=== PATIENT | female | born 1995 | race Asian ===

== ENCOUNTER 2021-01-06 22:37 | Emergency (ER) | payer BC ==
[~2021-01-06] VITALS: Ht 162.6 cm; Wt 54.5 kg
[2021-01-06 23:35] LABS: HEMATOCRIT 40.7 % (37.0-47.0); HEMOGLOBIN 13.4 g/dl (12.5-16.0); MEAN CELL VOLUME 90 fl (80.0-100.0); MEAN CORPUSCULAR HEMOGLOBIN 30 pg (27.0-31.0); MEAN CORPUSCULAR HGB CONC 33 g/dl (33.0-37.0); MEAN PLATELET VOLUME 9.6 fl (7.4-10.4); PLATELET COUNT 308 K/mm3 (130-400); REDCELL DISTRIBUTION WIDTH-CV 12.5 % (11.5-14.5)
[2021-01-06 23:46] LABS: ALANINE AMINOTRANSFERASE 17 U/L (4-34); ALBUMIN 4.6 gm/dL (3.5-5.0); ALKALINE PHOSPHATASE 72 U/L (50-136); ANION GAP 8 mmol/L (7-16); AST,SGOT 28 U/L (15-37); BILIRUBIN,TOTAL 0.2 mg/dL (0.0-1.0); BLOOD UREA NITROGEN 8 mg/dL (7-17); CALCIUM 9.5 mg/dL (8.4-10.2); CARBON DIOXIDE 27 mmol/L (22-30); CHLORIDE 104 mmol/L (98-107); CREATININE, serum 0.69 (0.52-1.25); GLUCOSE 105 mg/dL (74-106); LIPASE 99 U/L (23-300); POTASSIUM 3.9 mmol/L (3.4-5.0); SODIUM 139 mmol/L (137-145); TOTAL PROTEIN 8.3 gm/dL (6.4-8.2)
[2021-01-06 23:48] LABS: C-REACTIVE PROTEIN < 0.5 mg/dL (0.0-0.9)
[2021-01-06 23:54] LABS: BAND 1 % (0-10); BASOPHIL 2 % (0-2); EOSINOPHIL 1 % (0-4); HYPOCHROMIA 1+; LYMPHOCYTE 28 % (20.0-51.0); NEUTROPHILS 51 % (42.0-75.2); PLATELET ESTIMATE NORMAL (NORMAL)
[2021-01-06 23:59] LABS: COLLECTION METHOD CLEAN CATCH
[2021-01-07 00:07] LABS: AMORPHOUS CRYSTAL Present /uL; PH 8 (5-8); URINE APPEARANCE Cloudy; URINE BACTERIA Rare /hpf; URINE BILIRUBIN Negative (NEGATIVE); URINE BLOOD 1+ (NEGATIVE); URINE COLOR Yellow; URINE GLUCOSE Negative (NEGATIVE); URINE KETONE Negative (NEGATIVE); URINE LEUKOCYTE ESTERASE 3+ (NEGATIVE); URINE NITRATE Negative (NEGATIVE); URINE PROTEIN(semi-quant) 1+ (NEGATIVE); URINE UROBILINOGEN Negative (NEGATIVE)
[2021-01-07] MEDS ORDERED: OMNICEF 300MG300 MG PO (00:39)
[2021-01-07 01:38] VITALS: BP 118/68; PULSE 97; TEMP 97.8
== END 2021-01-07 01:38 | disposition home or self-care (01) ==
LOC: COL.ER 22:37
PROVIDERS: Nurse Practitioner Primary Care
DX: N39.0 Urinary tract infection, site not specified (principal); Z32.02 Encounter for pregnancy test, result negative
CPT/HCPCS: J0696; J1885; J2405; J7030

== ENCOUNTER 2021-06-03 16:40 | Emergency (ER) | payer BC ==
[~2021-06-03] VITALS: Ht 162.6 cm; Wt 54.5 kg
[~2021-06-03 16:40] MED LIST: OMNICEF 300MG300 MG PO
[2021-06-03 17:11] LABS: HEMATOCRIT 40.8 % (37.0-47.0); HEMOGLOBIN 13.6 g/dl (12.5-16.0); MEAN CELL VOLUME 89 fl (80.0-100.0); MEAN CORPUSCULAR HEMOGLOBIN 30 pg (27-31); MEAN CORPUSCULAR HGB CONC 33 g/dl (33.0-37.0); MEAN PLATELET VOLUME 10.2 fl (7.4-10.4); PLATELET COUNT 303 K/mm3 (130-400); RED BLOOD COUNT 4.57 M/mm3 (4.10-5.30); REDCELL DISTRIBUTION WIDTH-CV 13.4 % (11.5-14.5)
[2021-06-03 17:29] LABS: ALBUMIN 3.9 gm/dL (3.5-5.0); BILIRUBIN,TOTAL 0.2 mg/dL (0.2-1.2); CALCIUM 8.9 mg/dL (8.4-10.2); CREATININE, serum 0.66 mg/dL (0.57-1.11); POTASSIUM 4.5 mmol/L (3.5-4.5); TOTAL PROTEIN 8.2 gm/dL (6.2-8.1)
[2021-06-03 17:33] LABS: BAND 11 % (0-10); EOSINOPHIL 1 % (0-4); LYMPHOCYTE 30 % (20.0-51.0); NEUTROPHILS 42 % (42.0-75.2); PLATELET ESTIMATE NORMAL (NORMAL)
[2021-06-03 18:45] VITALS: BP 109/80; PULSE 84; TEMP 97.8
== END 2021-06-03 18:45 | disposition home or self-care (01) ==
LOC: COL.ER 16:40
PROVIDERS: Student in an Organized Health Care Education/Training Program
DX: O21.9 Vomiting of pregnancy, unspecified (principal); O99.511 Diseases of the respiratory system complicating pregnancy, first trimester; J45.909 Unspecified asthma, uncomplicated; Z3A.01 Less than 8 weeks gestation of pregnancy
CPT/HCPCS: J2405; J7030

== ENCOUNTER 2021-09-13 11:08 | Emergency (ER) | payer BC | END 2021-09-13 11:55 | disposition left against medical advice (07) | LOC: COL.ER 11:08 | DX: R69 Illness, unspecified (principal) ==

== ENCOUNTER 2022-01-28 08:03 | Inpatient (IN) | payer BC ==
[~2022-01-28] VITALS: Ht 162.6 cm; Wt 79.4 kg
--- NOTE | 2022-01-31 06:30 | NUR ---
0630 PT ON UNIT, CHANGED INTO LABOR GOWN, COMFORTABLE IN BED. UPDATED PATIENT ON INDUCTION PLAN OF CARE. PT REFUSING PITOCIN AT THIS TIME. PT REQUESTS A "PROSTAGLANDIN" TO START LABOR. THIS RN INFORMED PT THAT HER CERVICAL EXAM DOES NOT INDICATE THE NEED FOR A PROSTAGLANDIN AND THAT PITOCIN WILL BE MOST HELPFUL TO CONTINUE CLAUDIA AND DILATING. PT STILL REFUSING PITOCIN. WILL INFORM DR. CARLSON.
[2022-01-31 07:00] VITALS: PULSE 98; TEMP 98.3
--- NOTE | 2022-01-31 07:25 | NUR ---
0725 E[facility] TRACED ONE VARIABLE/BABY COMING OFF THE MONITOR. THIS RN TOLD PT WE WOULD MONITOR HER FOR 20 MINUTES AFTER VARIABLE TO ENSURE THAT BABY IS NOT HAVING BRADYCARDIC EPISODES.
[2022-01-31 07:30] VITALS: BP 128/68; PULSE 100
--- NOTE | 2022-01-31 07:30 | NUR ---
0586 THIS RN AT BEDSIDE TO DISCUSS PLAN ON CARE. INFORMED PT THAT DR. CARLSON WOULD LIKE HER TO START PITOCIN AND THAT A PROSTAGLANDIN WILL NOT BE ADEQUATE TO START HER LABOR. PT STILL REQUESTING PROSTAGLANDIN. THIS RN TOLD PT SHE IS ALREADY DILATED AND CYTOTEC IS NOT INDICATED. PT WOULD RATHER GO HOME THAN START PITOCIN.
[2022-01-31 08:00] VITALS: BP 127/68; PULSE 99
[2022-01-31] MEDS ORDERED: PRENATAL TABLET PO (08:13)
[2022-01-31] MEDS ORDERED: 00186-0372-20 IH (08:13)
[2022-01-31] MEDS ORDERED: REGLAN 10MG10 MG/TAB PO (08:14)
--- NOTE | 2022-01-31 08:53 | NUR ---
[id number] DR. CARLSON IN PT ROOM TO DISCUSS THE RISKS OF PATIENT LEAVING AND INFORM PT THAT SHE WOULD BE LEAVING AGAINST MEDICAL ADVICE. INFORMED PT THAT PITOCIN COULD BE STARTED OR SHE COULD HAVE AN AROM. PT REFUSED BOTH OPTIONS. DR. CARLSON DISCUSSED THE RISKS OF LEAVING WHEN SHE IS POST-TERM AND GDM. PT UNDERSTANDS. PT ASKED IF SHE COULD COME BACK IN LATER THIS WEEK FOR AN INDUCTION IF SHE DOES NOT GO INTO LABOR. DR. CARLSON INFORMED PT THAT INDUCTION SPOTS ARE NOT EASY TO GET. PT UNDERSTANDS. PT UNDERSTANDS RISKS OF LEAVING AND IS COMFORTABLE DOING SO.
[2022-01-31 09:00] VITALS: BP 123/90; PULSE 112
[2022-01-31 09:10] VITALS: BP 138/94; PULSE 136
[2022-02-03] MEDS ORDERED: IBU600 MG PO (09:24)
[2022-02-03] MEDS ORDERED: ROXICODONE 55 MG/TAB PO (09:24)
== END 2022-01-31 09:40 | disposition home or self-care (01) | DRG 786 ==
LOC: LDR 01-31 06:20 → OB 01-31 08:02 → LDR 01-31 09:40
PROVIDERS: ADMIT Obstetrics & Gynecology
PROC: 10D00Z1 Extraction of Products of Conception, Low, Open Approach (ICD-10-PCS; principal; 2022-01-31)
DX: O48.1 Prolonged pregnancy (principal); O41.1230 Chorioamnionitis, third trimester, not applicable or unspecified; Z3A.42 42 weeks gestation of pregnancy; Z37.0 Single live birth; O77.0 Labor and delivery complicated by meconium in amniotic fluid; O99.344 Other mental disorders complicating childbirth; F41.9 Anxiety disorder, unspecified; J45.909 Unspecified asthma, uncomplicated; O99.52 Diseases of the respiratory system complicating childbirth; O75.89 Other specified complications of labor and delivery; O76 Abnormality in fetal heart rate and rhythm complicating labor and delivery; O24.429 Gestational diabetes mellitus in childbirth, unspecified control; Z53.29 Procedure and treatment not carried out because of patient's decision for other reasons
CPT/HCPCS: J7120

== ENCOUNTER 2022-01-30 20:00 | Outpatient (CLI) | payer BC ==
[~2022-01-30] VITALS: Ht 162.6 cm; Wt 77.7 kg
--- NOTE | 2022-01-30 20:10 | NUR ---
Ambulatory to unit for labor check, accompanied by boyfriend. oriented to room, monitor, plan of care. Pt reports contractions all day, "getting painful since 7pm" SVE as noted.
[2022-01-30 20:25] VITALS: BP 119/81; PULSE 105; TEMP 99.1
[2022-01-30 21:30] VITALS: BP 117/81; PULSE 88; TEMP 98.8
--- NOTE | 2022-01-30 21:30 | NUR ---
Repeat SVE with no changes noted. Reported to pt. Pt states "I will change and go home" Explained to pt that I would take her off the monitor to change into her clothes, but hat I will need to call the on-call Dr for discharge order and will bring in discharge paperwokr for her to sign before she leaves.
--- NOTE | 2022-01-30 21:50 | NUR ---
Discharge instructions reviewed with pt. PT scheduled for induction in am @ 6:30. Pt had stated earlier "I'm not sure about that, I'd like labor to progress naturally". Reviewed plan for induaction in AM. Pt inquires if Dr Art will be here in the morning to discuss and start the induction process with her. I explained that he would not be here and that the nurses would be admitting her, starting her IV and IV pitocin. She replyed that she does not think she want's pitcoin started because she has read that she should have prostagladins used if her baby's station is still high. When asked what if weight on ultrasound 2 wks ago was >8lbs. Pt said "yes but I don't believe that. Ultrasounds this late in can be off by as much as 2 lbs." After discussion, pt plans to come in for induction, but doesn't want Pitocin started until after she talks to the DR. Barajas off unit.
[2022-01-31] MEDS ORDERED: 00186-0372-20 IH (08:13)
[2022-01-31] MEDS ORDERED: PRENATAL TABLET PO (08:13)
[2022-01-31] MEDS ORDERED: REGLAN 10MG10 MG/TAB PO (08:14)
[2022-02-03] MEDS ORDERED: IBU600 MG PO (09:24)
[2022-02-03] MEDS ORDERED: ROXICODONE 55 MG/TAB PO (09:24)
== END 2022-01-30 22:00 | disposition home or self-care (01) ==
LOC: LDRO 20:00
DX: O62.9 Abnormality of forces of labor, unspecified (principal); Z3A.42 42 weeks gestation of pregnancy